=== PATIENT | female | born 1940 | race Caucasian/White ===

== ENCOUNTER 2018-11-23 10:34 | Inpatient (IN) | payer MEDICARE, OTHER ==
[2018-11-17 11:42] VITALS: BP 125/73
[~2018-11-23] VITALS: Ht 162.6 cm; Wt 65.4 kg
[~2018-11-23 10:34] MED LIST: APIX5TAB PO; FENTANYL PF 100 MCG/2ML IV PRN; HALOPERIDOL 5 MG/ML IV PRN; LABETALOL 5MG/ML, 20ML IV PRN; LOSA25TA25 PO; MEPERIDINE/PF 25MG/0.5ML IVPush PRN; METO25TA91 PO; METOPROLOL 1 MG/ML, 5ML IV PRN; OMEP-110 PO; OXYcodone 5 MG/5 ML ORAL.SOL UDC PO PRN; PROCHLORPERAZINE 5 MG/ML, 2ML IV PRN; PROMETHAZINE 25 MG/ML, 1ML IV PRN; SIMV20TA3 PO; hydrALAzine 20 MG/ML, 1ML IV PRN
[2018-11-23] MEDS ORDERED: LACTATED RINGERS 1,000 ML IV SCH (11:15)
[2018-11-23] MEDS ORDERED: LIDOCAINE-MPF 1%, 2ML INFIL ONE (11:30)
[2018-11-23] MEDS ORDERED: GABAPENTIN 300 MG CAPSULE PO ONE (11:30)
[2018-11-23] MEDS ORDERED: SCOPOLAMINE PATCH, 1.5MG PATCH.TD72 TD ONE (11:30)
[2018-11-23] MEDS ORDERED: ACETAMINOPHEN 500 MG TABLET PO ONE (11:30)
[2018-11-23] MEDS ORDERED: HEPARIN 1,000 UNITS/ML, 10ML ONE (13:41)
[2018-11-23] MEDS ORDERED: BUPIVACAINE/PF 0.25% ONE (13:41)
[2018-11-23] MEDS ORDERED: EPINEPHRINE 1 MG/ML, 1ML ONE (13:42)
[2018-11-23] MEDS ORDERED: FENTANYL PF 250 MCG/5ML ONE ×2 (13:46→17:19)
[2018-11-23] MEDS ORDERED: SUCCINYLCHOLINE 20 MG/ML, 10ML ONE (15:28)
[2018-11-23] MEDS ORDERED: GLYCOPYRROLATE 0.2MG/1ML, 5ML ONE (15:28)
[2018-11-23] MEDS ORDERED: PROPOFOL 10 MG/ML, 20ML ONE (15:28)
[2018-11-23] MEDS ORDERED: DEXAMETHASONE 4 MG/ML, 1ML ONE (15:28)
[2018-11-23] MEDS ORDERED: CEFAZOLIN 1,000 MG ONE ×2 (15:28)
[2018-11-23] MEDS ORDERED: ONDANSETRON 2MG/ML, 2ML ONE (15:28)
[2018-11-23] MEDS ORDERED: NEOSTIGMINE 1 MG/ML, 10ML ONE (15:28)
[2018-11-23] MEDS ORDERED: ROCURONIUM 10MG/ML,5ML ONE (17:21)
[2018-11-23] MEDS ORDERED: HYDROmorphone 1 MG/ML, 1ML ONE (19:10)
[2018-11-23] MEDS: HYDROmorphone 2 MG/ML, 1ML IVPush PRN ×2 (19:19→19:40)
[2018-11-23] MEDS ORDERED: HALOPERIDOL 5 MG/ML ONE (19:23)
[2018-11-23] MEDS ORDERED: morphine SULFATE 10 MG/ML, 1ML IVPush PRN (19:30)
[2018-11-23] MEDS ORDERED: LIDOCAINE-MPF 2%, 2ML ONE (19:57)
[2018-11-23] MEDS ORDERED: PHENYLEPHRINE 10 MG/ML ONE (20:22)
[2018-11-23] MEDS ORDERED: MEPERIDINE/PF 25MG/ML,1ML ONE (20:29)
[2018-11-23] MEDS ORDERED: ALBUMIN HUMAN 25% 50 ML ONE (20:33)
[2018-11-23] MEDS ORDERED: MIDAZOLAM 1 MG/ML, 2ML ONE (20:46)
[2018-11-23] MEDS ORDERED: MIDAZOLAM 1 MG/ML, 2ML IVPush ONE (21:30)
[2018-11-23 22:22] LABS: BASOPHILS # (AUTO) 0.01 x10^3/uL (0-0.1); BASOPHILS % (AUTO) 0 % (0-1); EOSINOPHILS % (AUTO) 0 % (1-7); LYMPHOCYTES # (AUTO) 0.81 x10^3/uL (1-3.4); LYMPHOCYTES % (AUTO) 17 % (22-44); MD NO; MEAN CORPUSCULAR HEMOGLOBIN 28.4 pg (27.0-34.8); MEAN CORPUSCULAR HGB CONC 32.9 g/dL (32.4-35.8); MEAN CORPUSCULAR VOLUME 86.2 fL (80-100); MONOCYTES # (AUTO) 0.34 x10^3/uL (0.2-0.8); MONOCYTES % (AUTO) 7 % (2-9); NEUTROPHILS % (AUTO) 75 % (42-75); PLATELET COUNT 150 x10^3/uL (130-400); RED CELL DISTRIBUTION WIDTH 16.1 % (9.6-15.2)
[2018-11-23] MEDS: FAMOTIDINE 20 MG/2 ML IV SCH (22:57)
[2018-11-23] MEDS: POTASSIUM CHLORIDE 20 MEQ in D5%-0.45% NACL 1,000 ML IV SCH (22:57)
[2018-11-24] MEDS ORDERED: ALBUMIN HUMAN 25% 100 ML IV ONE (00:30)
[2018-11-24] MEDS ORDERED: SODIUM CHLORIDE 0.9% 1,000ML IVBOLUS ONE ×2 (02:00→08:00)
[2018-11-24 04:00] VITALS: BP 85/47
[2018-11-24] MEDS ORDERED: PHENYLEPHRINE 20 MG in SODIUM CHLORIDE 0.9% 248 ML IV PRN (04:30)
[2018-11-24 04:48] LABS: BASOPHILS # (AUTO) 0.01 x10^3/uL (0-0.1); BASOPHILS % (AUTO) 0 % (0-1); EOSINOPHILS % (AUTO) 0 % (1-7); LYMPHOCYTES # (AUTO) 0.81 x10^3/uL (1-3.4); LYMPHOCYTES % (AUTO) 20 % (22-44); MD NO; MEAN CORPUSCULAR HEMOGLOBIN 28.4 pg (27.0-34.8); MEAN CORPUSCULAR HGB CONC 32.9 g/dL (32.4-35.8); MEAN CORPUSCULAR VOLUME 86.5 fL (80-100); MEAN PLATELET VOLUME 7.7 fL (7.4-10.4); MONOCYTES # (AUTO) 0.27 x10^3/uL (0.2-0.8); MONOCYTES % (AUTO) 7 % (2-9); NEUTROPHILS # (AUTO) 3.04 x10^3/uL (1.8-6.8); NEUTROPHILS % (AUTO) 74 % (42-75); PLATELET COUNT 127 x10^3/uL (130-400); RED BLOOD COUNT 3.11 x10^6/uL (3.82-5.3)
[2018-11-24 04:49] LABS: ALBUMIN 2.3 g/dL (3.4-5.0); ANION GAP 6 mmol/L (5-15); CALCIUM 6.8 mg/dL (8.5-10.1); CHLORIDE 112 mmol/L (98-107); CREATININE 0.55 mg/dL (0.55-1.02)
[2018-11-24] MEDS: FAMOTIDINE 20 MG/2 ML IV SCH ×2 (07:55→19:55)
[2018-11-24] MEDS ORDERED: SODIUM CHLORIDE 0.9%, 500ML IVBOLUS ONE (08:00)
[2018-11-24] MEDS ORDERED: ALBUMIN HUMAN 25% 100 ML IV SCH (08:00)
[2018-11-24] MEDS: POTASSIUM CHLORIDE 20 MEQ in D5%-0.45% NACL 1,000 ML IV SCH ×2 (08:05→16:23)
[2018-11-24] MEDS: ALBUMIN HUMAN 5% 500 ML IV SCH ×2 (10:03→19:55)
[2018-11-24] MEDS: ERTAPENEM 1 GM in SODIUM CHLORIDE 0.9% 50 ML IV SCH (19:55)
[2018-11-24] MEDS: ACETAMINOPHEN 325 MG TABLET PO PRN (19:55)
[2018-11-24 20:26] LABS: MICROSCOPIC AUTO
[2018-11-24] MEDS: LINEZOLID PMX 600MG/300ML 300 ML IV SCH (20:31)
[2018-11-24 20:36] LABS: CULTURE INDICATED? NO
[2018-11-25] MEDS: POTASSIUM CHLORIDE 20 MEQ in D5%-0.45% NACL 1,000 ML IV SCH (03:30)
[2018-11-25 04:00] VITALS: BP 112/56
[2018-11-25] MEDS: ACETAMINOPHEN 325 MG TABLET PO PRN ×2 (05:18→16:45)
[2018-11-25 05:33] LABS: ALBUMIN 2.8 g/dL (3.4-5.0); ANION GAP 7 mmol/L (5-15); CALCIUM 7.4 mg/dL (8.5-10.1); CHLORIDE 113 mmol/L (98-107); CREATININE 0.66 mg/dL (0.55-1.02)
[2018-11-25 05:40] LABS: MEAN CORPUSCULAR HEMOGLOBIN 28.1 pg (27.0-34.8); MEAN CORPUSCULAR HGB CONC 32.8 g/dL (32.4-35.8); MEAN CORPUSCULAR VOLUME 85.5 fL (80-100); MEAN PLATELET VOLUME 7.9 fL (7.4-10.4); PLATELET COUNT 178 x10^3/uL (130-400); RED BLOOD COUNT 3.43 x10^6/uL (3.82-5.3); RED CELL DISTRIBUTION WIDTH 16.1 % (9.6-15.2)
[2018-11-25] MEDS: ALBUMIN HUMAN 5% 500 ML IV SCH (06:02)
[2018-11-25 06:09] LABS: BASOPHILS # (AUTO) 0.03 x10^3/uL (0-0.1); BASOPHILS % (AUTO) 0 % (0-1); EOSINOPHILS % (AUTO) 0 % (1-7); LYMPHOCYTES # (AUTO) 1.43 x10^3/uL (1-3.4); LYMPHOCYTES % (AUTO) 16 % (22-44); MD SCAN; MONOCYTES # (AUTO) 0.45 x10^3/uL (0.2-0.8); MONOCYTES % (AUTO) 5 % (2-9); NEUTROPHILS # (AUTO) 7.03 x10^3/uL (1.8-6.8); NEUTROPHILS % (AUTO) 79 % (42-75)
[2018-11-25] MEDS: LINEZOLID PMX 600MG/300ML 300 ML IV SCH ×2 (07:58→22:26)
[2018-11-25] MEDS: FAMOTIDINE 20 MG/2 ML IV SCH (08:07)
[2018-11-25] MEDS: APIXABAN 5 MG TABLET PO SCH ×2 (08:26→22:01)
[2018-11-25] MEDS: OMEPRAZOLE 20 MG CAPSULE.DR PO SCH ×2 (08:26→22:01)
[2018-11-25 16:04] VITALS: BP 111/72
[2018-11-25 18:40] VITALS: BP 95/61
[2018-11-25] MEDS: ERTAPENEM 1 GM in SODIUM CHLORIDE 0.9% 50 ML IV SCH (20:57)
[2018-11-26 01:21] VITALS: BP 122/72
[2018-11-26] MEDS: POTASSIUM CHLORIDE 20 MEQ in D5%-0.45% NACL 1,000 ML IV SCH ×2 (04:05→17:53)
[2018-11-26 06:45] VITALS: BP 112/73
[2018-11-26] MEDS: LINEZOLID PMX 600MG/300ML 300 ML IV SCH ×2 (09:03→21:31)
[2018-11-26] MEDS: APIXABAN 5 MG TABLET PO SCH ×2 (09:03→20:35)
[2018-11-26] MEDS: OMEPRAZOLE 20 MG CAPSULE.DR PO SCH ×2 (09:03→20:35)
[2018-11-26 15:00] VITALS: BP 100/65
[2018-11-26 18:39] VITALS: BP 118/72
[2018-11-26] MEDS: ERTAPENEM 1 GM in SODIUM CHLORIDE 0.9% 50 ML IV SCH (20:35)
[2018-11-27 00:41] VITALS: BP 109/71
[2018-11-27] MEDS: POTASSIUM CHLORIDE 20 MEQ in D5%-0.45% NACL 1,000 ML IV SCH ×2 (04:36→17:04)
[2018-11-27 04:51] LABS: ALANINE AMINOTRANSFERASE 16 U/L (12-78); ALBUMIN 2.1 g/dL (3.4-5.0); ANION GAP 6 mmol/L (5-15); CALCIUM 7.2 mg/dL (8.5-10.1); CHLORIDE 113 mmol/L (98-107); MEAN CORPUSCULAR HEMOGLOBIN 27.5 pg (27.0-34.8); MEAN CORPUSCULAR HGB CONC 32.4 g/dL (32.4-35.8); MEAN PLATELET VOLUME 7.6 fL (7.4-10.4); PLATELET COUNT 226 x10^3/uL (130-400); RED BLOOD COUNT 3.78 x10^6/uL (3.82-5.3); RED CELL DISTRIBUTION WIDTH 16.1 % (9.6-15.2)
[2018-11-27 04:53] LABS: ALKALINE PHOSPHATASE 67 U/L (45-117); BILIRUBIN,TOTAL 1.1 mg/dL (0.2-1.0); CREATININE 0.59 mg/dL (0.55-1.02)
[2018-11-27 05:39] LABS: BASOPHILS # (AUTO) 0.02 x10^3/uL (0-0.1); BASOPHILS % (AUTO) 0 % (0-1); EOSINOPHILS # (AUTO) 0.04 x10^3/uL (0-0.4); EOSINOPHILS % (AUTO) 1 % (1-7); LYMPHOCYTES # (AUTO) 1.33 x10^3/uL (1-3.4); LYMPHOCYTES % (AUTO) 15 % (22-44); MD SCAN; MONOCYTES # (AUTO) 0.64 x10^3/uL (0.2-0.8); MONOCYTES % (AUTO) 7 % (2-9); NEUTROPHILS % (AUTO) 77 % (42-75)
[2018-11-27 08:05] VITALS: BP 100/66
[2018-11-27] MEDS: APIXABAN 5 MG TABLET PO SCH ×2 (09:48→20:53)
[2018-11-27] MEDS: OMEPRAZOLE 20 MG CAPSULE.DR PO SCH ×2 (09:49→20:53)
[2018-11-27] MEDS: LINEZOLID PMX 600MG/300ML 300 ML IV SCH (09:51)
[2018-11-27] MEDS: PSYLLIUM PACKET PO SCH (13:21)
[2018-11-27 15:01] VITALS: BP 94/65
[2018-11-27] MEDS: ACETAMINOPHEN 325 MG TABLET PO PRN (18:16)
[2018-11-27 18:42] VITALS: BP 96/65
[2018-11-28 00:46] VITALS: BP 102/64
[2018-11-28] MEDS: POTASSIUM CHLORIDE 20 MEQ in D5%-0.45% NACL 1,000 ML IV SCH (03:18)
[2018-11-28] MEDS: OMEPRAZOLE 20 MG CAPSULE.DR PO SCH ×2 (07:50→19:52)
[2018-11-28] MEDS: APIXABAN 5 MG TABLET PO SCH ×2 (07:50→19:52)
[2018-11-28] MEDS: PSYLLIUM PACKET PO SCH (07:50)
[2018-11-28 08:53] VITALS: BP 134/85
[2018-11-28 13:30] VITALS: BP 117/72
[2018-11-28] MEDS: ACETAMINOPHEN 325 MG TABLET PO PRN (16:39)
[2018-11-28 18:47] VITALS: BP 93/59
[2018-11-28] MEDS: D5%-0.45NACL+KCL 20MEQ 1,000 ML IV SCH (19:49)
[2018-11-29 01:17] VITALS: BP 101/62
[2018-11-29 07:08] VITALS: BP 127/72
[2018-11-29] MEDS: OMEPRAZOLE 20 MG CAPSULE.DR PO SCH ×2 (09:51→20:47)
[2018-11-29] MEDS: PSYLLIUM PACKET PO SCH (09:51)
[2018-11-29] MEDS: APIXABAN 5 MG TABLET PO SCH ×2 (09:51→20:47)
[2018-11-29 14:01] VITALS: BP 130/77
[2018-11-29] MEDS: D5%-0.45NACL+KCL 20MEQ 1,000 ML IV SCH (18:11)
[2018-11-29] MEDS: ACETAMINOPHEN 325 MG TABLET PO PRN (18:11)
[2018-11-29 19:44] VITALS: BP 95/60
[2018-11-29] MEDS: SIMVASTATIN 20 MG TABLET PO SCH (20:47)
[2018-11-30 01:10] VITALS: BP 94/53
[2018-11-30 06:55] VITALS: BP 95/68
[2018-11-30] MEDS ORDERED: METOPROLOL SUCCINATE 25 MG TAB.ER.24H PO SCH (09:00)
[2018-11-30] MEDS ORDERED: LOSARTAN 25MG TABLET PO SCH (09:00)
[2018-11-30] MEDS: APIXABAN 5 MG TABLET PO SCH ×2 (09:51→20:42)
[2018-11-30] MEDS: OMEPRAZOLE 20 MG CAPSULE.DR PO SCH ×2 (09:52→20:42)
[2018-11-30] MEDS: PSYLLIUM PACKET PO SCH (09:52)
[2018-11-30 15:04] VITALS: BP 90/58
[2018-11-30] MEDS: D5%-0.45NACL+KCL 20MEQ 1,000 ML IV SCH (18:39)
[2018-11-30 19:00] VITALS: BP 82/54
[2018-11-30] MEDS: SIMVASTATIN 20 MG TABLET PO SCH (20:48)
[2018-12-01 01:00] VITALS: BP 95/56
[2018-12-01 08:55] VITALS: BP 91/64
[2018-12-01] MEDS: LOSARTAN 25MG TABLET PO SCH (09:00)
[2018-12-01] MEDS ORDERED: D5%-0.45NACL+KCL 20MEQ 1,000 ML IV SCH (09:00)
[2018-12-01] MEDS: OMEPRAZOLE 20 MG CAPSULE.DR PO SCH ×2 (09:51→20:42)
[2018-12-01] MEDS: PSYLLIUM PACKET PO SCH (09:51)
[2018-12-01] MEDS: APIXABAN 5 MG TABLET PO SCH ×2 (09:51→20:42)
[2018-12-01] MEDS: METOPROLOL SUCCINATE 25 MG TAB.ER.24H PO SCH (10:05)
[2018-12-01 12:42] VITALS: BP 96/60
[2018-12-01 20:30] VITALS: BP 91/56
[2018-12-01] MEDS: SIMVASTATIN 20 MG TABLET PO SCH (20:42)
[2018-12-02 00:41] VITALS: BP 101/67
[2018-12-02 07:49] VITALS: BP 96/58
[2018-12-02] MEDS: LOSARTAN 25MG TABLET PO SCH (07:54)
[2018-12-02] MEDS: METOPROLOL SUCCINATE 25 MG TAB.ER.24H PO SCH (07:55)
[2018-12-02] MEDS: APIXABAN 5 MG TABLET PO SCH ×2 (07:57→20:54)
[2018-12-02] MEDS: PSYLLIUM PACKET PO SCH (07:57)
[2018-12-02] MEDS: OMEPRAZOLE 20 MG CAPSULE.DR PO SCH ×2 (07:57→20:54)
[2018-12-02 13:10] VITALS: BP 90/50
[2018-12-02] MEDS: ACETAMINOPHEN 325 MG TABLET PO PRN (17:29)
[2018-12-02 18:50] VITALS: BP 92/57
[2018-12-02] MEDS: SIMVASTATIN 20 MG TABLET PO SCH (20:54)
[2018-12-03 00:31] VITALS: BP 94/58
[2018-12-03 07:34] VITALS: BP 95/59
[2018-12-03] MEDS: LOSARTAN 25MG TABLET PO SCH (08:43)
[2018-12-03] MEDS: METOPROLOL SUCCINATE 25 MG TAB.ER.24H PO SCH (08:43)
[2018-12-03] MEDS: APIXABAN 5 MG TABLET PO SCH (08:44)
[2018-12-03] MEDS: OMEPRAZOLE 20 MG CAPSULE.DR PO SCH (08:44)
[2018-12-03] MEDS: PSYLLIUM PACKET PO SCH (08:44)
== END 2018-12-03 14:00 | DRG 736 ==
LOC: ORIP 10:52 → CCU 21:51 → 3NW 11-25 11:18
PROVIDERS: ADMIT Specialist; ATTEND Specialist
PROC: 0UT20ZZ Resection of Bilateral Ovaries, Open Approach (ICD-10-PCS; 2018-11-23)
PROC: 0UT90ZZ Resection of Uterus, Open Approach (ICD-10-PCS; 2018-11-23)
PROC: 0DBW0ZZ Excision of Peritoneum, Open Approach (ICD-10-PCS; 2018-11-23)
PROC: 0DBP0ZZ Excision of Rectum, Open Approach (ICD-10-PCS; 2018-11-23)
PROC: 0D1B0Z4 Bypass Ileum to Cutaneous, Open Approach (ICD-10-PCS; 2018-11-23)
PROC: 8E0W0CZ Robotic Assisted Procedure of Trunk Region, Open Approach (ICD-10-PCS; 2018-11-23)
PROC: 02HV33Z Insertion of Infusion Device into Superior Vena Cava, Percutaneous Approach (ICD-10-PCS; 2018-11-23)
PROC: 0DBN0ZZ Excision of Sigmoid Colon, Open Approach (ICD-10-PCS; 2018-11-23)
PROC: B548ZZA Ultrasonography of Superior Vena Cava, Guidance (ICD-10-PCS; 2018-11-23)
PROC: 0UT70ZZ Resection of Bilateral Fallopian Tubes, Open Approach (ICD-10-PCS; principal; 2018-11-23 13:00)
DX: C56.1 Malignant neoplasm of right ovary (principal); E43 Unspecified severe protein-calorie malnutrition; I50.22 Chronic systolic (congestive) heart failure; R18.8 Other ascites; J98.11 Atelectasis; C56.2 Malignant neoplasm of left ovary; I11.0 Hypertensive heart disease with heart failure; I95.9 Hypotension, unspecified; E78.5 Hyperlipidemia, unspecified; Z88.2 Allergy status to sulfonamides; D64.9 Anemia, unspecified; K21.9 Gastro-esophageal reflux disease without esophagitis; I73.00 Raynaud's syndrome without gangrene; Z79.01 Long term (current) use of anticoagulants; Z82.49 Family history of ischemic heart disease and other diseases of the circulatory system; Z85.43 Personal history of malignant neoplasm of ovary; Z85.72 Personal history of non-Hodgkin lymphomas; Z86.711 Personal history of pulmonary embolism; Z86.718 Personal history of other venous thrombosis and embolism; Z87.442 Personal history of urinary calculi; Z90.710 Acquired absence of both cervix and uterus; Z88.0 Allergy status to penicillin; Z68.24 Body mass index [BMI] 24.0-24.9, adult
CPT/HCPCS: 36415; 71045; 80048; 80053; 81001; 82040; 82533; 82570; 85014; 85018; 85025; 86850; 86900; 86923; 87040; 87081; 88112; 88305; 88307; G0378; J0171; J0690; J1100; J1170; J1335; J1644; J2020; J2175; J2250; J2405; J2704; J2710; J3010; J3480; J3490; P9045; P9047; J0330; J2370; J7030; J7050; J7120